=== PATIENT | male | born 1950 | race Caucasian/White ===

== ENCOUNTER 2016-05-04 22:44 | Observation (INO) | payer OTHER ==
--- NOTE | ~2016-05-04 | HP ---
History And Physical [place] [id number] [facility] [place]. [address] NAME: TARIQ SOSA : [birth year] STATUS : ADM Rukhsana PAT#: [id number] AGE: 65 ADM/REG DATE : 05/04/16 MR#: [id number] REPORT SERV DATE: 05/05/16 DICTATED BY: NICOLASA YIP DATE: 05/05/16 REPORT STATUS : Draft TRANSCRIBED BY: PAULINE DATE: 05/05/16 DATE OF ADMISSION: 05/04/2016 CHIEF COMPLAINT: Dull chest pain. HISTORY OF PRESENT ILLNESS: A pleasant, 65-year-old, white gentleman with no known history of CAD, states that on 05/04 around 1800 he experienced a left-sided chest pain that radiated to his left axilla, back, and left neck. He describes it as a dull ache and pressure with associated shortness of breath, nausea, diaphoresis, and belching. He denies any lightheadedness. At its most intense, he rates the chest pain a 5/10. At time of interview in the [facility], he rates it a 2/10. He states the episode lasted approximately two hours in duration. He also reports episodic chest pain over the past several days. There is no pattern described and no clear exertional component. The patient denies any personal history of myocardial infarction, stroke, DVT, or pulmonary embolus. The patient denies any recent fever or chills, no palpitations, no syncopal episodes. Denies PND or orthopnea. Consumes 4 cups of tea per day. Of note, patient has recently transitioned to a new PCP, Abel Concepcion DO, who has asked patient to maintain a blood pressure diary which he presents to this clinician with some blood pressure readings of 120-170/80-100. The patient has followup visit with Dr. Concepcion early 06/01. PAST MEDICAL HISTORY: 1. COPD. 2. Dyslipidemia. 3. GERD. 4. Denies diabetes. 5. Sleep apnea, noncompliant with CPAP. 6. Ongoing tobacco abuse. 7. Positive family history for early stroke. 8. Currently watching blood pressure with blood pressure diary. PAST SURGICAL HISTORY: 1. Right hand surgery. 2. Fusion of left wrist. 3. Cataract repair. 4. Hemorrhoidectomy. SOCIAL HISTORY: He is with one child. 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 Does not have an exercise routine. Smokes one pack per day for 52+ years. Rarely consumes alcohol. Occasionally smokes marijuana, most recently this past . FAMILY HISTORY: Father of a stroke at the age of 62. Sister of throat cancer with metastases. Brother with exposure to [employer]. History And Physical [address] [address] NAME: TARIQ SOSA : [birth year] STATUS : ADM Rukhsana PAT#: [id number] AGE: 65 ADM/REG DATE : 05/04/16 MR#: [id number] REPORT SERV DATE: 05/05/16 DICTATED BY: NICOLASA YIP DATE: 05/05/16 REPORT STATUS : Draft TRANSCRIBED BY: PAULINE DATE: 05/05/16 REVIEW OF SYSTEMS: A 14-point review of systems performed, significant for HPI including shingles 1 year ago and blood pressure diary of 120-170/80-100; otherwise, complete review of systems obtained and negative. ALLERGIES: NO KNOWN DRUG ALLERGIES BUT FOOD ALLERGIES, WHEAT, SHELLFISH, YEAST, PEANUTS, AND VANILLA, HIVES. HOME MEDICATIONS: Cymbalta 30 mg daily, Breo Ellipta daily, Motrin 800 mg three times daily, multivitamin daily, Prilosec 40 mg daily, Crestor 10 mg nightly, and Incruse Ellipta daily. PHYSICAL EXAMINATION: VITAL SIGNS: Blood pressure 143/81, pulse 88, respirations 20, temperature 98.8. GENERAL: Cooperative, in no apparent distress. HEENT: Pupils 2 mm, sclera nonicteric. Nares patent. Moist mucous membranes. No xanthelasma. NECK: Trachea midline, no thyromegaly. No JVD. No bruits. LYMPH: No cervical lymphadenopathy. No supraclavicular lymphadenopathy. RESPIRATORY: Unlabored respirations. Breath sounds clear bilaterally to posterior auscultation. No wheezes or rhonchi. CARDIOVASCULAR: Regular rate. No murmur, rub or gallop appreciated. Extremities without edema. Pulses 2+ bilaterally. ABDOMEN: Soft, nontender, nondistended, normal bowel sounds auscultated throughout. No organomegaly. SKIN: Warm, dry extremities. No pallor, or cyanosis. PSYCHIATRIC: Appropriate affect. Alert, oriented x3. LABORATORY DATA: Troponin less than 0.02 x2. Potassium 3.3. BUN 19, creatinine 1.20, glucose 103, magnesium 1.7. Lipase 135. WBC 9.7, hemoglobin 13.5, hematocrit 38.4, platelet count 263,000. EKG, sinus rhythm with inferior Q-waves and PVCs. Echo, 05/2014: EF 55%. MPI, 05/2014: No ischemia, EF 47%. ASSESSMENT AND PLAN: 1. Substernal chest pain in patient with risk factors of elevated blood pressure, dyslipidemia, family history, and ongoing tobacco abuse. The patient will be observed in the [facility]. Two sets of cardiac markers negative. EKG, stable. The patient will be held n.p.o. for MPI in the morning. Discharge home if low risk, no ischemia. If anything suggestive of ischemia, Cardiology referral will be initiated. Otherwise, the patient will be asked to follow up with Abel Concepcion DO, as previously scheduled. 2. Recent elevated blood pressure. Patient maintains a diary. He has it with him. Blood pressure readings are 120-170/80-100. I will monitor blood pressure and consider addition of antihypertensive at discharge with PCP follow up as scheduled. 3. Hypokalemia of 3.3, replete per protocol and hypomagnesemia of 1.7. Replete per protocol. History And Physical [address] [address] NAME: TARIQ SOSA : 48 STATUS : ADM Rukhsana PAT#: [id number] AGE: 65 ADM/REG DATE : 05/04/16 MR#: [id number] REPORT SERV DATE: 05/05/16 DICTATED BY: NICOLASA YIP DATE: 05/05/16 REPORT STATUS : Draft TRANSCRIBED BY: MODTimbo DATE: 05/05/16 4. Tobacco abuse. Counseled regarding cessation for cardiovascular health and well being. CARTER/PAULINE Nicolasa Yip, MSN, SOCIAL STUDIES DEPARTMENT CHAIR-BC / [id number] CC: Nicolasa Yip, MSN, SOCIAL STUDIES DEPARTMENT CHAIR-BC Abel Concepcion, DO
[~2016-05-04 22:44] MED LIST: ADVAIR250 INH; BEN25 PO; CRESTOR10 PO; DUREZOL0.05 % OPH; FLEX PO; IRON PO; NORCO1 TA2 PO; PT DENIES HOME MEDS; SPIRIVA INH; VENTOLIN HFA INH; ZINC PO
[2016-05-04 23:17] LABS: BASOPHILS 0.4 %; BASOPHILS ABSOLUTE 0.04 10/3/uL (0.0-0.16); EOSINOPHILS 2.9 %; EOSINOPHILS ABSOLUTE 0.28 10/3/uL (0.0-0.53); ER CBC TAT 0 Hrs 09 Mins; HEMATOCRIT 38.4 % (40.0-51.0); HEMOGLOBIN 13.5 g/dL (13.6-17.8); IMMATURE GRANULOCYTES 0.1 %; IMMATURE GRANULOCYTES ABSOLUTE 0.01 10/3/uL (0.0-0.11); LYMPHOCYTES 21.1 %; LYMPHOCYTES ABSOLUTE 2.04 10/3/uL (0.67-4.30); MEAN CORPUS HGB CONC 35.2 g/dL (32.0-36.0); MEAN CORPUSCULAR HEMOGLOB 32.9 pg (26.0-34.0); MEAN CORPUSCULAR VOLUME 93.7 fL (80-100); MEAN PLATELET VOLUME 10.6 fL (9.2-13.0); MONOCYTES ABSOLUTE 1.16 10/3/uL (0.21-1.20); NEUTROPHILS 63.5 %; NEUTROPHILS ABSOLUTE 6.14 10/3/uL (2.02-8.40); PLATELET COUNT 263 10/3/uL (150-400); RBC DISTRIBUTION WIDTH 13.8 % (12.0-16.0); WHITE BLOOD CELLS 9.7 10/3/uL (4.5-10.5)
[2016-05-04 23:18] LABS: MANUAL DIFF NO %
[2016-05-04 23:30] LABS: CALCIUM, SERUM 8.5 MG/DL (8.5-10.4); CHEST PAIN PROFILE TAT 0 Hrs 22 Mins; CHLORIDE, SERUM 107 MMOL/L (96-112); CO2 (CARBON DIOXIDE) 26 MMOL/L (24-34); GFR AFRICAN AMERICAN 73 ML/MIN (>=60); GFR NON AFRICAN AMERICAN 63 ML/MIN (>=60); GLUCOSE, SERUM 103 MG/DL (60-99); INTERNATIONAL NORMAL RATI 1.1 UNITS (-); PARTIAL THROMBO TIME 29.9 SEC (22.5-37.2); POTASSIUM, SERUM 3.3 MMOL/L (3.5-5.3); PROTIME (NOT ORD) 13.8 SEC (12.0-14.5); TROPONIN I <0.02 NG/ML (<0.05)
[2016-05-04 23:33] LABS: BUN (BLOOD UREA NITROGEN) 19 MG/DL (6-23); SODIUM, SERUM 144 MMOL/L (135-148)
[2016-05-05] MEDS ORDERED: IBU800 PO (01:31)
[2016-05-05] MEDS ORDERED: MULTIVITAMI1 PO (01:32)
[2016-05-05] MEDS ORDERED: CYMBALTA30 PO (01:33)
[2016-05-05] MEDS ORDERED: BREO ELLIPTA INH ×2 (01:33→01:34)
[2016-05-05] MEDS ORDERED: PRILOSEC40 MG PO (01:33)
[2016-05-05] MEDS ORDERED: CRESTOR10 PO (01:35)
[2016-05-05] MEDS ORDERED: INCRUSE ELLI62.5 MCG INH (01:35)
[2016-05-06] MEDS ORDERED: COZ25 PO (13:42)
== END 2016-05-06 14:02 | disposition home or self-care (01) ==
LOC: ER 22:44 → ER/OF 23:59 → CDU1 05-05 06:02 → CDU2 05-05 06:12
PROVIDERS: Emergency Medicine
DX: R07.2 Precordial pain (principal); J44.9 Chronic obstructive pulmonary disease, unspecified; E78.5 Hyperlipidemia, unspecified; E87.6 Hypokalemia; R03.0 Elevated blood-pressure reading, without diagnosis of hypertension; K21.9 Gastro-esophageal reflux disease without esophagitis; G47.30 Sleep apnea, unspecified; Z98.890 Other specified postprocedural states; F17.210 Nicotine dependence, cigarettes, uncomplicated; Z88.8 Allergy status to other drugs, medicaments and biological substances; Z79.899 Other long term (current) drug therapy
CPT/HCPCS: 71010; 78452; 80048; 83690; 83735; 84132; 84484; 85025; 85610; 85730; 93005; 93017; 96374; 99285; A9270-GY; A9502; G0378